=== PATIENT | female | born 1965 | race Caucasian/White ===

== ENCOUNTER → 2017-03-19 | Outpatient (CLI) | payer OTHER ==
[~2017-03-19] MED LIST: ATEN-173 PO; CHOL2000 PO; CLON1TAB3 PO; CLR10 PO; FLUT0.15; GABA-112 PO; HYG/25 PO; LEVO137T3 PO; LISI-725 PO; LYR50 PO; MELO7.5T5 PO; MOME100A INH; MONT1TAB3 PO; OMEP40CA41 PO; SACC250C11 PO; TIZA4CAP PO; TRAZ100T29 PO; VNTHFA/IN INH
[2017-03-19 19:29] LABS: BLOOD UREA NITROGEN 13 mg/dl (7-18); BUN/CREATININE RATIO 15.2 (10-20); CALCIUM 8.6 mg/dl (8.5-10.1); CARBON DIOXIDE 28 mmol/L (21-32); CHLORIDE 109 mmol/L (98-107); CREATININE 0.83 mg/dl (0.60-1.20); GLUCOSE 87 mg/dl (70-99); SODIUM 143 mmol/L (136-145)
[2017-03-19 19:40] LABS: CHOLESTEROL 213 mg/dl (0-200); CHOLESTEROL/HDL RATIO 4.3; HDL CHOLESTEROL 50 mg/dl; TRIGLYCERIDES 154 mg/dl (0-150); VERY LOW DENSITY LIPOPROT CALC 31 mg/dl
[2017-03-19 19:55] LABS: ESTIMATED AVERAGE GLUCOSE 123 mg/dl; HA1C FLAG Normal (Normal)
== END | disposition home or self-care (01) ==
LOC: C.LABMFLN 10:43
PROVIDERS: ATTEND Family Medicine
DX: E05.90 Thyrotoxicosis, unspecified without thyrotoxic crisis or storm (principal); E55.9 Vitamin D deficiency, unspecified; R73.01 Impaired fasting glucose; Z13.220 Encounter for screening for lipoid disorders

== ENCOUNTER → 2017-06-11 | Day surgery (SDC) | payer OTHER ==
[2017-05-10 09:50] VITALS: BMI 41.0
[~2017-06-11] VITALS: Ht 152.4 cm; Wt 97.0 kg
[~2017-06-11] MED LIST changes: +ATROPINE SULFATE 0.1 MG/ML 5ML SYR IV PRN; +EpHEDrine SULFATE INJ 50 MG/ML AMP IV PRN; +FENTANYL CITRATE INJ 50 MCG/1 ML 2 ML VIAL ONE; +LIDOCAINE HCL 2% 2 ML VIAL (20MG/ML) ONE; +MIDAZOLAM HCL 1 MG/ML 2ML VIAL ONE; +PROPOFOL IV EMULSION 10 MG/ML 100 ML VIAL IV ONE; +PROPOFOL IV EMULSION 10 MG/ML 20 ML VIAL IV ONE
[2017-06-11 06:23] VITALS: BP 136/75; PULSE 80; TEMP 36.6; O2SAT 94; Ht 152.4 cm; Wt 97.0 kg
[2017-06-11 08:20] VITALS: BP 119/66; PULSE 72; TEMP 36.5; O2SAT 95
[2017-06-11 08:45] VITALS: BP 124/71; PULSE 70; TEMP 36.5; O2SAT 94
--- NOTE | 2017-06-11 08:52 | Anesthesiology Progress Note ---
Anesthesia Post Op Note Date & Time Jun 11, 2017 at 08:52 Vital Signs Pain Intensity: 0 Vital Signs Past 12 Hours Date Time Temp Pulse Resp B/P (MAP) Pulse Ox O2 Delivery O2 Flow Rate FiO2 06/11/17 08:20 36.5 72 14 119/66 95 Room Air 06/11/17 06:23 36.6 80 20 136/75 (95) 94 Room Air Notes Mental Status: alert / awake / arousable, participated in evaluation Pt Amnestic to Procedure: Yes Nausea / Vomiting: adequately controlled Pain: adequately controlled Airway Patency, RR, SpO2: stable & adequate BP & HR: stable & adequate Hydration State: stable & adequate Anesthetic Complications: no major complications apparent
--- NOTE | 2017-06-11 09:01 | DIAGNOSTIC IMAGING REPORT ---
MRI OF THE CERVICAL SPINE WITHOUT IV CONTRAST CLINICAL HISTORY: Cervical radiculopathy. COMPARISON STUDY: No priors. TECHNIQUE: MRI of the cervical spine is performed utilizing various T1 and T2-weighted sequences in the axial and sagittal planes. IV contrast was not administered for this examination. The examination is modestly degraded by motion artifact and was performed under anesthesia. FINDINGS: Cervical spine: Vertebral body height and alignment are maintained throughout the cervical spine. There is straightening of the cervical lordosis. The Atlantodental articulation appears maintained. The spinous processes are intact. No destructive bony lesion is seen. Tiny anterior osteophytes are seen in the lower cervical region. Intervertebral discs: Degenerative disc desiccation is noted throughout the cervical spine. There is mild to moderate loss of height at C5-C6 and C6-C7. Spinal cord: There is slightly increase in signal within the cervical cord seen at the C6-C7 level. This likely represents mild myelomalacia. The remainder of the cervical spinal cord is normal in morphology and signal intensity. C2-C3: Facet arthropathy causes minimal right-sided neural foraminal stenosis. The central canal is clear. C3-C4: There is a tiny posterior disc osteophyte complex of no consequence. Uncovertebral and facet arthropathy cause moderate left and minimal right neural foraminal stenosis. C4-C5: A tiny posterior disc osteophyte complex effaces the ventral subarachnoid space. Uncovertebral and facet arthropathy cause moderate left and mild right neural foraminal stenosis. C5-C6: A posterior disc osteophyte complex abuts the ventral cord. Uncovertebral and facet arthropathy cause severe bilateral neuroforaminal stenosis. C6-C7: A posterior disc osteophyte complex effaces the ventral cord. The minimum AP canal diameter at this level measures 6.5 mm. Uncovertebral and facet arthropathy cause severe bilateral neural foraminal stenosis, left greater than right. C7-T1: A small posterior disc osteophyte complex effaces the ventral subarachnoid space. Predominantly facet arthropathy causes moderate left neuroforaminal stenosis and mild right neural frontal stenosis. T1-T2: Unremarkable. Soft tissues: The prevertebral and paraspinous soft tissues are within normal limits. Brain parenchyma: Partially imaged brain parenchyma at the skull base is within normal limits. IMPRESSION: 1. Multilevel cervical spondylosis as above. This is greatest at C5-C6 and C6-C7. See discussion for detailed level by level analysis. 2. A posterior disc osteophyte complex at C6-C7 effaces the ventral cord. There is mild signal abnormality within the cervical cord at this level which likely represents minimal myelomalacia. 3. The remainder of the cervical cord is normal in morphology and signal intensity. 4. No destructive bony process is identified. Dictated: 06/11/2017 8:24 AM Transcribed: 06/11/2017 9:01 AM [email or web address] Electronically signed by: Juan Pablo Camarillo M.D. 06/11/2017 9:09 AM Dictated Date/Time: 06/11/2017 8:24 AM
== END | disposition home or self-care (01) ==
LOC: C.ACU 06:01 → EDSTATUS 07:30
PROVIDERS: ATTEND Family Medicine
DX: M50.123 Cervical disc disorder at C6-C7 level with radiculopathy (principal); M50.122 Cervical disc disorder at C5-C6 level with radiculopathy; M50.121 Cervical disc disorder at C4-C5 level with radiculopathy; M50.11 Cervical disc disorder with radiculopathy, high cervical region; G89.29 Other chronic pain; F41.9 Anxiety disorder, unspecified; F31.9 Bipolar disorder, unspecified; R73.01 Impaired fasting glucose; I10 Essential (primary) hypertension; G47.00 Insomnia, unspecified; E55.9 Vitamin D deficiency, unspecified; J45.909 Unspecified asthma, uncomplicated; R37 Sexual dysfunction, unspecified; Z79.899 Other long term (current) drug therapy; Z80.0 Family history of malignant neoplasm of digestive organs

== ENCOUNTER → 2017-11-04 | Outpatient (CLI) | payer OTHER ==
[~2017-11-04] MED LIST changes: -ATROPINE SULFATE 0.1 MG/ML 5ML SYR IV PRN; -EpHEDrine SULFATE INJ 50 MG/ML AMP IV PRN; -FENTANYL CITRATE INJ 50 MCG/1 ML 2 ML VIAL ONE; -GABA-112 PO; -LIDOCAINE HCL 2% 2 ML VIAL (20MG/ML) ONE; -MELO7.5T5 PO; -MIDAZOLAM HCL 1 MG/ML 2ML VIAL ONE; -PROPOFOL IV EMULSION 10 MG/ML 100 ML VIAL IV ONE; -PROPOFOL IV EMULSION 10 MG/ML 20 ML VIAL IV ONE
== END | disposition home or self-care (01) ==
LOC: C.LABMFLN 14:34
PROVIDERS: ATTEND Family Medicine
DX: Z01.818 Encounter for other preprocedural examination (principal); R05 Cough